=== PATIENT | male | born 1995 | race Caucasian/White ===

== ENCOUNTER → 2018-10-12 | Outpatient (CLI) | payer OTHER ==
[~2018-10-12] MED LIST: ATIVAN0.5 MG PO; BENTYL 20 MG TA20 M1 PO; ZOFRAN ODT4 M1 PO
== END ==
LOC: ULTRA 08:06
DX: I10 Essential (primary) hypertension (principal); Z88.8 Allergy status to other drugs, medicaments and biological substances

== ENCOUNTER → 2018-11-12 | Outpatient (CLI) | payer BC, OTHER | LOC: CAT 09:07 | DX: Z01.812 Encounter for preprocedural laboratory examination (principal) ==

== ENCOUNTER → 2020-04-25 | Outpatient (CLI) | payer BC, OTHER | LOC: MRI 08:08 | PROVIDERS: ATTEND Family Medicine | DX: R42 Dizziness and giddiness (principal) ==